=== PATIENT | male | born 1935 | race Caucasian/White ===

== ENCOUNTER 2016-07-29 14:17 | Day surgery (SDC) | payer MEDICARE, BC ==
[2016-07-29] VITALS (8 sets, daily range): BP systolic 108–141; BP diastolic 57–76; PULSE 49–59; TEMP 98–98.4
[~2016-07-29] VITALS: Ht 182.9 cm; Wt 109.0 kg
[2016-07-29 15:19] LABS: HEMATOCRIT 40.3 % (42.0-52.0); HEMOGLOBIN 14.2 g/dl (13.5-18.0); MEAN CELL VOLUME 96 fl (80.0-100.0); MEAN CORPUSCULAR HEMOGLOBIN 34 pg (27.0-31.0); MEAN CORPUSCULAR HGB CONC 35 g/dl (33.0-37.0); MEAN PLATELET VOLUME 10.8 fl (7.4-10.4); PLATELET COUNT 185 K/mm3 (130-400); REDCELL DISTRIBUTION WIDTH-CV 13.2 % (11.5-14.5); WHITE BLOOD COUNT 6.4 K/mm3 (4.8-10.8)
[2016-07-29] MEDS ORDERED: ZYLOPRIM 300MG300 MG PO (15:37)
[2016-07-29] MEDS ORDERED: ASPIRIN 81M81 MG/TA2 PO (15:37)
[2016-07-29] MEDS ORDERED: LIPITOR 40MG TA40 MG PO (15:38)
[2016-07-29] MEDS ORDERED: FLOMAX 0.40.4 MG/CAP PO (15:38)
[2016-07-29] MEDS ORDERED: SYNTHROID0.175 MG PO (15:39)
[2016-07-29] MEDS ORDERED: PRILOSEC 20MG20 MG PO (15:39)
[2016-07-29] MEDS ORDERED: CORDARONE200 MG/TAB PO (15:40)
[2016-07-29] MEDS ORDERED: COREG 3.123.125 MG/T PO (15:41)
[2016-07-29] MEDS ORDERED: VITAMIN C500 MG PO (15:41)
[2016-07-29] MEDS ORDERED: EPA FISH OIL1 SGL PO (15:42)
[2016-07-29] MEDS ORDERED: MULTIPLE VITAMI1 CAP PO (15:42)
[2016-07-29] MEDS ORDERED: VITAMIN D32000 I1 PO (15:43)
[2016-07-29] MEDS ORDERED: NITROSTAT0.4 MG/TAB SL (15:44)
[2016-07-29] MEDS ORDERED: COUMADIN 5MG5 MG/TAB PO (15:45)
[2016-07-30 02:20] VITALS: BP 129/67; PULSE 63; TEMP 97.3
[2016-07-30 05:36] VITALS: BP 138/65; PULSE 64; TEMP 97.6
[2016-07-30 09:49] VITALS: BP 153/66; PULSE 72; TEMP 98.7
[2016-07-30 13:49] VITALS: BP 138/59; PULSE 75; TEMP 98.5
== END 2016-07-30 14:16 | disposition home health service (06) ==
LOC: SDCO 14:17 → SURG 14:17 → SDCO 07-30 14:16
PROVIDERS: Urology
DX: R31.0 Gross hematuria (principal); I48.91 Unspecified atrial fibrillation; I10 Essential (primary) hypertension; I25.10 Atherosclerotic heart disease of native coronary artery without angina pectoris; I25.2 Old myocardial infarction; E78.5 Hyperlipidemia, unspecified; K21.9 Gastro-esophageal reflux disease without esophagitis; Z96.641 Presence of right artificial hip joint; Z96.651 Presence of right artificial knee joint; Z79.01 Long term (current) use of anticoagulants; Z87.891 Personal history of nicotine dependence
CPT/HCPCS: OP; C1769; J0690; J1100; J1885; J2405; J2704; J3010; J7030; Q9967